=== PATIENT | male | born 1965 | race Caucasian/White ===

== ENCOUNTER 2018-08-27 22:23 | Inpatient (IN) | payer OTHER ==
[~2018-08-27] VITALS: Ht 170.2 cm; Wt 100.0 kg
--- NOTE | 2018-08-27 22:33 | NUR ---
NIL X 1 WHEN CALLED FOR TRIAGE; BIB [facility].
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
--- NOTE | 2018-08-27 23:09 | NUR ---
PT ATTACHED TO MONITORING EQUIPMENT. ALL VITALS STABLE. PT REFUSING TO GET IN GOWN AT THIS TIME STATING "I CAN JUST PULL MY PANTS UP SO THE DOCTOR CAN SEE WHEN THEY COME IN"
[2018-08-27] MEDS ORDERED: SODIUM CHLORIDE 0.9% 1,000ML IVBOLUS ONE (23:30)
[2018-08-27] MEDS ORDERED: SODIUM CHLORIDE FLUSH 10ML SYR IVF ONE (23:30)
--- NOTE | 2018-08-27 23:31 | NUR ---
PT LYING ON GURNEY PLAYING ON PHONE. PT STATES HE IS "TOO TIRED" TO GET CHANGED INTO A GOWN. PT PROVIDED WITH GOWN AND BELONGINGS BAG AND ASKED TO PLEASE GET CHANGED SO WE MAY PROVIDE CARE.
--- NOTE | 2018-08-27 23:52 | NUR ---
PT CHANGED INTO A GOWN, ASSISTED BY THIS RN. PT AGITATED THAT HE HAS TO BE IN A GOWN IN ORDER TO BE EVALUATED
--- NOTE | 2018-08-28 00:02 | NUR ---
PT YELLING AT THIS RN ASKING ME TO "COVER MY LEGS WITH THE BLANKET". PT WAS ADVISED I WOULD DO SO AFTER I WAS FINISHED ATTACHING HIM TO ALL THE MONITORING EQUIPMENT. PT BECAME AGITATED AND STARTED THROWING BLANKETS OVER HIMSELF.
--- NOTE | 2018-08-28 00:08 | NUR ---
IV ESTABLISHED. FLUIDS STARTED. PT PROVIDED WITH CALL LIGHT, DENIES ANY OTHER NEEDS AT THIS TIME. WILL CONTINUE TO MONITOR.
--- NOTE | 2018-08-28 00:14 | NUR ---
LAB AND US AT BEDSIDE
[2018-08-28 00:23] LABS: BASOPHILS % (AUTO) 0 % (0-1); EOSINOPHILS # (AUTO) 0.04 x10^3/uL (0-0.4); EOSINOPHILS % (AUTO) 0 % (1-7); LYMPHOCYTES % (AUTO) 6 % (22-44); MD NO; MEAN CORPUSCULAR HGB CONC 33.9 g/dL (33.2-36.2); MEAN CORPUSCULAR VOLUME 82.8 fL (81-97); MONOCYTES # (AUTO) 0.49 x10^3/uL (0.2-0.8); MONOCYTES % (AUTO) 4 % (2-9); NEUTROPHILS # (AUTO) 10.16 x10^3/uL (1.8-6.8); NEUTROPHILS % (AUTO) 89 % (42-75); PLATELET COUNT 268 x10^3/uL (130-400); RED BLOOD COUNT 4.39 x10^6/uL (4.38-5.82); RED CELL DISTRIBUTION WIDTH 13.7 % (9.4-14.8)
[2018-08-28] MEDS ORDERED: ONDANSETRON 2MG/ML, 2ML IVPush ONE (00:30)
[2018-08-28 00:36] LABS: ALANINE AMINOTRANSFERASE 28 U/L (12-78); ANION GAP 7 mmol/L (5-15); CALCIUM 8.4 mg/dL (8.5-10.1); CHLORIDE 102 mmol/L (98-107); CREATININE 0.83 mg/dL (0.7-1.3)
[2018-08-28 00:38] LABS: ALKALINE PHOSPHATASE 81 U/L (45-117); BILIRUBIN,TOTAL 0.3 mg/dL (0.2-1.0); TOTAL PROTEIN 7.6 g/dL (6.4-8.2)
[2018-08-28] MEDS ORDERED: MORPHINE SULFATE 4 MG/ML, 1ML ONE ×2 (00:55→02:52)
[2018-08-28] MEDS ORDERED: ONDANSETRON 2MG/ML, 2ML ONE (00:55)
[2018-08-28] MEDS: MORPHINE SULFATE 4 MG/ML, 1ML IVPush PRN ×2 (00:59→02:58)
--- NOTE | 2018-08-28 00:59 | NUR ---
PT MEDICATED PER EMAR. 5 RIGHTS ADDRESSED.
--- NOTE | 2018-08-28 01:56 | NUR ---
PT TO BE ADMITTED
[2018-08-28] MEDS ORDERED: ONDANSETRON 2MG/ML, 2ML IVPush PRN ×2 (02:00→03:30)
--- NOTE | 2018-08-28 02:50 | NUR ---
REPORT TO DORIAN GEIGER
--- NOTE | 2018-08-28 02:58 | NUR ---
PT MEDICATED PER EMAR. 5 RIGHTS ADDRESSED
[2018-08-28] MEDS ORDERED: NICOTINE 21 MG/24 HR PATCH.TD24 TD SCH (03:30)
[2018-08-28] MEDS ORDERED: GABAPENTIN 300 MG CAPSULE PO PRN (03:30)
[2018-08-28] MEDS ORDERED: ACETAMINOPHEN 325 MG TABLET PO PRN (03:30)
[2018-08-28] MEDS ORDERED: ENOXAPARIN 40 MG/0.4 ML SQ SCH (03:30)
[2018-08-28] MEDS ORDERED: hydrALAzine 20 MG/ML, 1ML IV PRN (03:30)
[2018-08-28] MEDS ORDERED: PHARMACOKINETIC MONITORING MC PRN (03:30)
[2018-08-28] MEDS ORDERED: LACTATED RINGERS 1,000 ML IV SCH (03:30)
[2018-08-28] MEDS ORDERED: VANCOMYCIN PER PHARMACY MC PRN (03:30)
[2018-08-28] MEDS: CEFAZOLIN PMX 1GM/50ML 50 ML IV SCH ×2 (04:22→11:45)
[2018-08-28 05:22] VITALS: BP 159/88
[2018-08-28 05:22] LABS: AMPHETAMINE SCREEN, URINE Positive (Negative); BARBITURATE SCREEN, URINE Negative (Negative); BENZODIAZEPINE SCREEN, URINE Negative (Negative); CANNABINOID SCREEN, URINE Negative (Negative); COCAINE SCREEN, URINE Negative (Negative); METHADONE SCREEN, URINE Positive (Negative); OPIATE SCREEN, URINE Positive (Negative)
[2018-08-28] MEDS: VANCOMYCIN 2,000 MG in SODIUM CHLORIDE 0.9% 500 ML IV SCH ×2 (05:41→17:36)
[2018-08-28 07:42] VITALS: BP 120/68
[2018-08-28] MEDS ORDERED: SODIUM CHLORIDE 0.9% 1,000 ML IV SCH (10:00)
[2018-08-28] MEDS: OXYcodone IR 5MG TABLET PO PRN ×2 (11:45→17:36)
[2018-08-28 13:48] VITALS: BP 142/88
[2018-08-28 19:08] VITALS: BP 177/88
== END 2018-08-28 19:55 | disposition left against medical advice (07) | DRG 871 ==
LOC: ED 08-28 01:41 → EDIP 08-28 02:15 → 3NE 08-28 02:16
PROVIDERS: ADMIT Internal Medicine; ATTEND Internal Medicine
DX: A41.9 Sepsis, unspecified organism (principal); J18.9 Pneumonia, unspecified organism; L03.116 Cellulitis of left lower limb; E66.01 Morbid (severe) obesity due to excess calories; Z53.21 Procedure and treatment not carried out due to patient leaving prior to being seen by health care provider; Z87.820 Personal history of traumatic brain injury; Z68.34 Body mass index [BMI] 34.0-34.9, adult; Z86.14 Personal history of Methicillin resistant Staphylococcus aureus infection; Z72.0 Tobacco use
CPT/HCPCS: 36415; 71045; 80053; 80307; 83605; 84145; 85025; 87040; 87070; 87077; 87147; 87186; 87205; 93005; 99285; G0378; J0690; J1650; J2405; J3370; J7030; J7040; J7120